=== PATIENT | female | born 1975 | race Caucasian/White ===

== ENCOUNTER → 2020-06-24 | Outpatient (CLI) | payer OTHER ==
[~2020-06-24] MED LIST: FLONASE 0.05%50 MCG NASAL; MURO-128 5% OPH15 M1 OPHTHALMIC; NORCO 5-325 TA1 EAC2 PO; SUMATRIPTAN SUC50 MG PO; TRI-SPRINTEC1 EACH PO
== END ==
LOC: LAB 10:11
PROVIDERS: ATTEND Student in an Organized Health Care Education/Training Program
DX: Z01.812 Encounter for preprocedural laboratory examination (principal); Z11.59 Encounter for screening for other viral diseases

== ENCOUNTER 2020-06-29 10:06 | Day surgery (SDC) | payer OTHER ==
[~2020-06-29] VITALS: Ht 162.6 cm; Wt 65.3 kg
--- NOTE | ~2020-06-29 | O ---
[facility] [place] [address] OPERATIVE REPORT Name: NADEEN VILLASENOR Room #: 150-7 [facility] M.R.#: [id number] Admission: 06/29/20 Attend Phys: Preston Sainz MD Discharge: Date of : 77 Report #: [id number] THIS REPORT FOR: cc: Muriel Quispe MD, Kimberly A. MD Abraham,Preston Evans MD ~ CC: Muriel Sainz DATE OF SERVICE: 06/29/2020 PREOPERATIVE DIAGNOSIS: Right knee medial meniscus tear. POSTOPERATIVE DIAGNOSES: 1. Right knee posterior horn medial meniscus complex tear. 2. 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 PROCEDURE: Right knee arthroscopy with partial medial meniscectomy. SURGEON: Preston Sainz MD. IN HOME AIDE: Elana Dailey PA-C. ANESTHESIA: LMA. TOURNIQUET TIME: 15 minutes. COMPLICATIONS: None. SPECIMENS: None. CONDITION UPON LEAVING THE OPERATING ROOM: Stable. INDICATIONS FOR PROCEDURE: The patient is a 44-year-old female with medial-sided right knee pain. She had an MRI scan showing to have a tear posterior horn medial meniscus tear and in addition has osteoarthritic change on the medial side of the joint and in efforts to delay knee arthroplasty, she elected for right knee arthroscopy with medial meniscectomy and debridement as needed. DESCRIPTION OF PROCEDURE: Risks, benefits, alternatives, complications were discussed in detail with the patient including but not limited to risk of anesthesia, risk of damage to nerves, arteries, blood vessels, risk for infection, bleeding, risk for continued knee pain, need for reoperation. Informed consent was obtained from the patient. Right knee was appropriately marked in the preoperative holding area. IV Ancef was given for preoperative [address] [address] OPERATIVE REPORT Name: NADEEN VILLASENOR Room #: 150-7 [facility] Ramirez#: [id number] Admission: 06/29/20 Attend Phys: Preston Sainz MD Discharge: Date of : 77 Report #: [id number] antibiotics. She was brought to the operating room and placed in supine position on operating room table. LMA anesthesia was induced without complication. Tourniquet was placed on the right thigh. Right lower extremity was prepped and draped in normal sterile fashion. Timeout was performed properly identifying the patient and procedure as well as the instrumentation. All in the operating room were in agreement. Right lower extremity was exsanguinated, tourniquet was inflated. Tourniquet time was approximately 15 minutes. Standard anterolateral portal was established with 11 blade through the skin. Arthroscope was introduced into the patellofemoral compartment, diagnostic arthroscopy was undertaken. Patellofemoral compartment was visualized and found to be without pathology. Medial gutter was visualized and found to have worsening osteophyte on the femur. Medial compartment was visualized and medial portal was established under arthroscopic visualization. Probe was introduced into the medial compartment and there was noted to be a complex tear of the posterior horn of medial meniscus. This was trimmed back to stable rim and smoothed back with oscillating shaver. In addition, there was noted to be grade 4 chondromalacia of the medial femoral condyle as well as medial tibial plateau with exposed subchondral bone. Notch was visualized and found to have an intact anterior cruciate ligament. Lateral compartment was visualized and found to have an intact lateral meniscus. Scope was placed back in the patellofemoral compartment and all fluid was allowed to drain from the knee. Knee was injected with 10 mL of 0.5% Marcaine. Incision was closed with 3-0 nylon. Soft dressing of Adaptic, 4 x 4, Webril, Viktor wrap were applied. The patient tolerated this procedure well and went to recovery room under care of anesthesia postoperatively. By: [id number] Preston Sainz MD /larry
[~2020-06-29 10:06] MED LIST changes: -NORCO 5-325 TA1 EAC2 PO
[2020-06-29 11:13] VITALS: BP 146/93
[2020-06-29] MEDS ORDERED: NORCO 5-325 TA1 EAC2 PO (13:03)
[2020-06-29 13:25] VITALS: BP 146/93
== END 2020-06-29 14:05 | disposition home or self-care (01) ==
LOC: OR 10:06 → TBA 10:10 → OR 10:11
PROVIDERS: ATTEND Orthopaedic Surgery
DX: M23.221 Derangement of posterior horn of medial meniscus due to old tear or injury, right knee (principal); M17.11 Unilateral primary osteoarthritis, right knee; M94.261 Chondromalacia, right knee; M25.561 Pain in right knee; G43.909 Migraine, unspecified, not intractable, without status migrainosus; Z98.890 Other specified postprocedural states; Z79.899 Other long term (current) drug therapy; Z88.2 Allergy status to sulfonamides
CPT/HCPCS: 50010; 50101; 50405; 56526; 57103; 57180; 62110; 62900; 70005